=== PATIENT | male | born 1960 | race Two or more races ===

== ENCOUNTER 2025-02-07 08:30 | Inpatient (IN) | payer OTHER ==
[~2025-02-07] VITALS: Ht 157.5 cm; Wt 70.8 kg
[2025-02-07] MEDS ORDERED: ROSUVASTATIN CA20 MG PO (09:53)
[2025-02-14] MEDS ORDERED: CEFTRIAXONE SODIUM 2,000 MG VIAL ONE (06:39)
[2025-02-14] MEDS ORDERED: METRONIDAZOLE/SODIUM CHLORIDE 500 MG/100 ML PIGGYBACK IV ONE (06:40)
[2025-02-14] MEDS ORDERED: BUPIVACAINE HCL/MPF 0.5% 30ML VIAL ONE (06:59)
[2025-02-14] MEDS ORDERED: LIDOCAINE HCL 1%/EPINEPHRINE 20ML VIAL IJ ONE (06:59)
[2025-02-14] MEDS ORDERED: CHLORHEXIDINE GLUCONATE 120 ML BOTTLE TOP ONE (07:55)
[2025-02-14] MEDS ORDERED: SUGAMMADEX SODIUM 200 MG/2 ML VIAL IV ONE (08:29)
[2025-02-14] MEDS ORDERED: MORPHINE SULFATE 4 MG/ML CARTRIDGE IV PRN (09:45)
[2025-02-14] MEDS ORDERED: DEXTROSE 50 % IN WATER 0.5 G/ML VIAL IV PRN (09:45)
[2025-02-14] MEDS ORDERED: ONDANSETRON HCL 2 MG/ML VIAL IV PRN (09:45)
[2025-02-14] MEDS ORDERED: 0.9 % SODIUM CHLORIDE 1,000 ML IV SCH (09:45)
[2025-02-14] MEDS ORDERED: OxyCODONE HCL 5 MG TABLET (ROXICODONE) PO PRN (09:45)
[2025-02-14] MEDS ORDERED: MORPHINE SULFATE 4 MG/ML VIAL IV ONE ×2 (10:15→10:45)
[2025-02-14 12:22] LABS: BASO % 0.1 % (0.1-1.2); EOS # 0.01 (0.04-0.54); EOS % 0.1 % (0.7-7.0); HEMATOCRIT 41.5 % (40.1-51.0); HEMOGLOBIN 13.7 g/dL (13.7-17.5); LYMPH # 0.85 (1.18-3.74); MEAN CORPUSCULAR HEMOGLOBIN 26.5 pg (25.6-32.2); MONO # 1.33 (0.24-0.82); MONO % 7.9 % (4.7-12.5); NEUT # 14.66 (1.56-6.13); NEUT % 86.5 % (34.0-71.1); PLATELET COUNT 300 K/uL (163-369); RED BLOOD COUNT 5.17 M/uL (4.63-6.08); RED CELL DISTRIBUTION WIDTH 14.1 % (11.6-14.4)
[2025-02-14 12:32] VITALS: BP 154/75; O2SAT 97
[2025-02-14] MEDS ORDERED: HYOSCYAMINE SULFATE 0.125 MG TAB.SUBL SL SCH (13:00)
[2025-02-14 13:11] LABS: ALBUMIN 3.1 gm/dL (3.4-5.0); CALCIUM 8.8 mg/dL (8.5-10.1); CREATININE SERUM 0.88 mg/dL (0.70-1.30); GFR 86.64; MAGNESIUM 1.6 mg/dL (1.8-2.4); PHOSPHOROUS 2.8 mg/dL (2.5-4.9); POTASSIUM 3.28 mEq/L (3.5-5.1)
[2025-02-14] MEDS ORDERED: ACETAMINOPHEN 500 MG GEL..CAP PO SCH (14:00)
[2025-02-14 17:00] VITALS: BP 145/80; O2SAT 96
[2025-02-14] MEDS ORDERED: METRONIDAZOLE/SODIUM CHLORIDE 500 MG/100 ML PIGGYBACK IV SCH (17:00)
[2025-02-14] MEDS ORDERED: GABAPENTIN 300 MG CAPSULE PO SCH (17:00)
[2025-02-14] MEDS ORDERED: POLYETHYLENE GLYCOL 3350 17 GM BLIST.PACK PO SCH (17:00)
[2025-02-14] MEDS ORDERED: CELECOXIB 200 MG CAPSULE PO SCH (21:00)
[2025-02-14] MEDS ORDERED: FAMOTIDINE/PF 20 MG/2 ML VIAL IV PUSH SCH (21:00)
[2025-02-15] VITALS: BP 126/75; O2SAT 95
[2025-02-15 06:55] LABS: BASO % 0.1 % (0.1-1.2); EOS # 0.02 (0.04-0.54); EOS % 0.2 % (0.7-7.0); HEMOGLOBIN 13.7 g/dL (13.7-17.5); LYMPH # 0.88 (1.18-3.74); LYMPH % 7.5 % (19.3-53.1); MEAN CORPUSCULAR HEMOGLOBIN 27.1 pg (25.6-32.2); MONO # 1.43 (0.24-0.82); NEUT # 9.31 (1.56-6.13); NEUT % 79.7 % (34.0-71.1); PLATELET COUNT 320 K/uL (163-369); RED BLOOD COUNT 5.06 M/uL (4.63-6.08); RED CELL DISTRIBUTION WIDTH 14.3 % (11.6-14.4)
[2025-02-15 07:05] LABS: MONO % 12.2 % (4.7-12.5)
[2025-02-15 07:27] LABS: ALBUMIN 2.9 gm/dL (3.4-5.0); CALCIUM 8.4 mg/dL (8.5-10.1); CREATININE SERUM 0.67 mg/dL (0.70-1.30); GFR 118.68; MAGNESIUM 1.5 mg/dL (1.8-2.4); PHOSPHOROUS 2.2 mg/dL (2.5-4.9); POTASSIUM 3.81 mEq/L (3.5-5.1)
[2025-02-15 08:00] VITALS: BP 156/76; O2SAT 97
[2025-02-15] MEDS ORDERED: MAGNESIUM SULFATE IN WATER 50 ML IV NR (09:00)
[2025-02-15] MEDS ORDERED: POTASSIUM PHOS,M-BASIC-D-BASIC 3 MM/ML VIAL IV NR (10:00)
[2025-02-15 16:23] VITALS: BP 122/77; O2SAT 97
[2025-02-15] MEDS ORDERED: ENOXAPARIN SODIUM 40 MG/0.4 ML SYRINGE SUBCUTANEO SCH (17:00)
[2025-02-15] MEDS ORDERED: ROSUVASTATIN CALCIUM 20 MG TABLET PO SCH (17:00)
[2025-02-16 00:42] VITALS: BP 124/69; O2SAT 98
[2025-02-16 08:03] LABS: BASO % 0.3 % (0.1-1.2); EOS # 0.13 (0.04-0.54); EOS % 1.1 % (0.7-7.0); HEMATOCRIT 37.2 % (40.1-51.0); HEMOGLOBIN 12.5 g/dL (13.7-17.5); LYMPH # 1.46 (1.18-3.74); LYMPH % 12.3 % (19.3-53.1); MEAN CORPUSCULAR HEMOGLOBIN 27.1 pg (25.6-32.2); MONO # 1.06 (0.24-0.82); MONO % 8.9 % (4.7-12.5); NEUT # 9.17 (1.56-6.13); NEUT % 77.1 % (34.0-71.1); PLATELET COUNT 308 K/uL (163-369); RED BLOOD COUNT 4.62 M/uL (4.63-6.08); RED CELL DISTRIBUTION WIDTH 14.5 % (11.6-14.4)
[2025-02-16 08:19] LABS: CALCIUM 8.5 mg/dL (8.5-10.1); CREATININE SERUM 0.72 mg/dL (0.70-1.30); GFR 109.22; MAGNESIUM 1.9 mg/dL (1.8-2.4); POTASSIUM 3.6 mEq/L (3.5-5.1)
[2025-02-16 08:30] VITALS: BP 132/69; O2SAT 98
[2025-02-16] MEDS ORDERED: ENOXAPARIN SODIUM 40 MG/0.4 ML SYRINGE SUBCUTANEO SCH (09:00)
[2025-02-16 17:15] VITALS: BP 114/68; O2SAT 99
[2025-02-17 00:13] VITALS: BP 127/73; O2SAT 97
[2025-02-17 08:21] VITALS: BP 167/81; O2SAT 98
[2025-02-17] MEDS ORDERED: INTESTINEX680 M1 PO (13:40)
[2025-02-17] MEDS ORDERED: TYLENOL ARTHRI650 MG PO (13:40)
[2025-02-17] MEDS ORDERED: NEURONTIN300 MG PO (13:40)
== END 2025-02-17 22:25 | disposition home or self-care (01) | DRG 331 ==
LOC: O/R 02-14 07:08 → SURH 02-14 08:30
PROVIDERS: Internal Medicine Geriatric Medicine; ADMIT Surgery; ATTEND Surgery
PROC: 0DBP4ZZ Excision of Rectum, Percutaneous Endoscopic Approach (ICD-10-PCS; 2025-02-14)
PROC: 07BC4ZZ Excision of Pelvis Lymphatic, Percutaneous Endoscopic Approach (ICD-10-PCS; 2025-02-14)
PROC: 0DJD8ZZ Inspection of Lower Intestinal Tract, Via Natural or Artificial Opening Endoscopic (ICD-10-PCS; 2025-02-14)
PROC: 0DTN4ZZ Resection of Sigmoid Colon, Percutaneous Endoscopic Approach (ICD-10-PCS; principal; 2025-02-14 14:30)
DX: C18.7 Malignant neoplasm of sigmoid colon (principal); R59.0 Localized enlarged lymph nodes

== ENCOUNTER 2025-03-18 10:48 | Emergency (ER) | payer OTHER ==
[~2025-03-18] VITALS: Ht 160 cm; Wt 61.7 kg
[~2025-03-18 10:48] MED LIST: INTESTINEX680 M1 PO; NEURONTIN300 MG PO; ROSUVASTATIN CA20 MG PO; TYLENOL ARTHRI650 MG PO
== END 2025-03-18 14:49 | disposition home or self-care (01) ==
LOC: ER 10:54
DX: K59.01 Slow transit constipation (principal)